=== PATIENT | female | born 1975 | race Caucasian/White ===

== ENCOUNTER 2017-12-15 11:10 | Emergency (ER) | payer OTHER ==
[2017-12-15 11:28] VITALS: BP 141/85; PULSE 87; TEMP 98.2; BMI 36.3
[2017-12-15] MEDS ORDERED: IBUPROFEN 600 MG TABLET (FP) PO ONE ×2 (12:11→12:14)
--- NOTE | 2017-12-15 12:31 | PDOC ---
History of Present Illness - General Chief Complaint: Pain Stated Complaint: RT ARM PAIN Time Seen by Provider: 12/15/17 11:27 History Source: Patient Exam Limitations: No Limitations - History of Present Illness Initial Comments: 12/15/17 12:52 Patient came to emergency department with complaints of right shoulder pain and 8 days. 9 days ago was doing some heavy lifting and cleaning but has 2 small children at home and performs heavy lifting daily. hit her right shoulder on side of the bed and since that time the pain in her shoulder has become worse. Denies fever, denies numbness or tingling to hand, but range of motion is very limited and unable to abduct past 45degrees Severity: reports: mild, moderate Pain Location: reports: upper extremity (right shoulder) Modifying Factors: improves with: cold therapy Past History - Travel Traveled outside of the country in the last 30 days: Yes Close contact w/someone who was outside of country & ill: Yes - Past Medical History Allergies/Adverse Reactions: Allergies Allergy/AdvReac Type Severity Reaction Status Date / Time No Known Allergies Allergy Verified 12/15/17 11:16 Home Medications: Ambulatory Orders Naproxen [Naprosyn -] 500 mg PO TID #30 tablet 12/15/17 COPD: No - Immunization History Immunization Up to Date: Yes - Suicide/Smoking/Psychosocial Hx Smoking History: Never smoked Review of Systems - Review of Systems Able to Perform ROS?: Yes Is the patient limited Syriac proficient: Yes Constitutional: Yes: See HPI. No: Symptoms Reported, Fever, Malaise HEENTM: No: Symptoms Reported Musculoskeletal: Yes: Symptoms Reported, See HPI, Joint Pain, Joint Swelling Integumentary: Yes: Symptoms Reported Neurological: No: Symptoms reported All Other Systems: Reviewed and Negative *Physical Exam - Vital Signs Last Vital Signs Temp Pulse Resp BP Pulse Ox 98.2 F 87 18 141/85 97 12/15/17 11:16 12/15/17 11:16 12/15/17 11:16 12/15/17 11:16 12/15/17 11:16 - Physical Exam General Appearance: Yes: Nourished, Appropriately Dressed, Apparent Distress, Mild Distress, Moderate Distress HEENT: positive: LALO, TMs Normal, Nasal Congestion, Rhinorrhea Neck: positive: Supple Respiratory/Chest: positive: Lungs Clear Gastrointestinal/Abdominal: positive: Soft. negative: Tender Musculoskeletal: positive: Normal Inspection. negative: CVA Tenderness Extremity: positive: Normal Capillary Refill, Normal Inspection, Tender (unable to abduct past 45 forward flex past 45, however able to make strong bicep and triceps strength. No pain with supination and pronation to wrist, neurovascular intact to hands and fingers.). negative: Normal Range of Motion Integumentary: positive: Normal Color, Dry, Warm Neurologic: positive: manager management II-XII NML intact, Fully Oriented, Alert, Normal Mood/ Affect, Normal Response, Motor Strength 5/5 *DC/Admit/Observation/Transfer Diagnosis at time of Disposition: Sprain of right shoulder Qualifiers: Encounter type: initial encounter Shoulder sprain type: rotator cuff capsule Qualified Code(s): S43.421A - Sprain of right rotator cuff capsule, initial encounter - Discharge Dispostion Disposition: HOME Condition at time of disposition: Stable Decision to Admit order: No - Referrals Referrals: Ladi Mckeon MD [Primary Care Provider] - - Patient Instructions Printed Discharge Instructions: DI for Shoulder Sprain Additional Instructions: Rest, ice to area on and off for 15 minutes 4-6 times a day Avoid heavy lifting or exercise until pain and swelling is resolved or until further directed Keep area highly elevated to reduce swelling Use splints/Sonu wrap as directed Followup with orthopedist in one to 2 days if not improving, if significantly improved may wait one week for followup with orthopedist May use Naprosyn 1 500 mg tablet-tablets every 8 hours as needed for pain - Post Discharge Activity Forms/Work/School Notes: Back to Work
== END 2017-12-15 13:06 | disposition home or self-care (01) ==
LOC: JER 11:10
DX: S43.421A Sprain of right rotator cuff capsule, initial encounter (principal); W22.8XXA Striking against or struck by other objects, initial encounter; Y93.89 Activity, other specified; Y92.032 Bedroom in apartment as the place of occurrence of the external cause; Y99.8 Other external cause status
CPT/HCPCS: 73030-TC-RT-FY; 99281-25